=== PATIENT | female | born 2005 | race African-American/Black ===

== ENCOUNTER 2023-09-18 13:05 | Emergency (ER) | payer SELFPAY ==
[~2023-09-18] VITALS: Ht 162.5 cm; Wt 53.5 kg
[2023-09-18 14:08] LABS: BILIRUBIN Negative (Negative); BLOOD 3+ (Negative); CLARITY Cloudy (Clear); COLOR Red (Yellow); GLUCOSE Negative (Negative); KETONE Negative (Negative); LEUKO ESTERASE 2+ (Negative); NITRITE Negative (Negative); SPECIFIC GRAVITY 1.015 (1.001-1.030); UROBILINOGEN 0.2 E.U./dl (0.0-1.0)
[2023-09-18 14:23] LABS: BACTERIA 2+; WBC 16-20 wbc/hpf (0-5)
== END 2023-09-18 14:43 | disposition left against medical advice (07) ==
LOC: ED 13:05
PROVIDERS: Nurse Practitioner Family
DX: R05.9 Cough, unspecified (principal); Z20.822 Contact with and (suspected) exposure to COVID-19; Z53.29 Procedure and treatment not carried out because of patient's decision for other reasons; R11.2 Nausea with vomiting, unspecified; Z88.0 Allergy status to penicillin; Z79.899 Other long term (current) drug therapy